=== PATIENT | male | born 1960 | race Caucasian/White ===

== ENCOUNTER 2017-10-13 08:58 | Outpatient (RCR) | payer OTHER ==
[~2017-10-13 08:58] MED LIST: AMLO-98 PO; ASPI-1471 PO; ASPI-715 PO; ATOR20TA65 PO; CALC625T69 PO; CHOL10005 PO; DOC100 PO; ERG400 PO; FAM20 PO; FINA5TAB67 PO; IBU600 PO; INUL2TAB8 PO; LEV500 PO; LEVO250T37 PO; LOR5/325 PO; MECL-81 PO; METF-410 PO; METF500T4 PO; MULT-865 PO; MULT1CAP59 PO; MULT1TAB54 PO; PER PO; PHENA200 PO; RAMI10CA62 PO
[2017-10-13 09:12] VITALS: BP 124/82
[2017-10-13 09:19] LABS: PLATELET COUNT, AUTOMATED 214 K/uL (150-450)
--- NOTE | 2017-10-13 12:11 | ONC Progress Note - NP.Halsey ---
Patient History Date of Service Oct 13, 2017 Reason For Visit/HPI Patient is seen in the clinic today with his for follow-up of his melanoma. Patient's continues to do complete skin check frequently. She has a few areas of concern that she is watching. Patient is recently followed with Dr. Pryor and at that time was noted to have no concerns. Patient has moved to [place] but continues to work in [place]. He will continue to follow with myself at this time. Patient denies any concerns today. He reports that he has had his flu vaccination and shingles vaccination. Last colonoscopy was at age 49 so he is not due for another 2-3 years. He continues to exercise and be active. Problem List (1) Melanoma in situ of back Oncology History DIAGNOSES 1. Stage I ([id number]) malignant melanoma of the skin of the back of right shoulder. 2. 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 3. Prostatitis. 4. Hematuria. The patient has followed with Dr. Sonny Cates and this has resolved. ONCOLOGY HISTORY 1. The patient was diagnosed at age 50 with a melanoma of the right shoulder. 2. Melanoma lesion of the midback, lesion with a small area of colonial pigmentation, removed; positive for malignant melanoma in situ, superficial, spreading type. Excised less than 1 mm of both peripheral tissue edges. Patient followed with Dr. Damian for further excision and negative margins. PRESENTATION 1. Change in color of a mole on the skin of the right shoulder noticed by the . 2. Abnormal pigmentation on the lesion in the midback, discovered on routine exam and also mentioned by the . DIAGNOSTIC EVALUATION 1. Skin biopsy of the right shoulder came back positive for malignant melanoma with a Breslow thickness of 1 mm Joselo level three. On second evaluation from the [facility], it was noted to be a superficial spreading malignant melanoma, Breslow thickness 0.82 mm stage 1A. 2. Malignant melanoma in situ, spreading type, on the midback on a shave biopsy on February 10, 2014. PROCEDURES 1. Wide surgical excision of the melanoma done on April 25, 2011. 2. February 10, 2014 malignant melanoma in situ extended to within less than 1 mm of both peripheral tissue edges of the right shoulder. PATHOLOGY No residual melanoma on either site STAGE 1. Stage I (apT1, NX, M0) malignant melanoma of the right skin at the back of the right shoulder 2. Stage 1, malignant melanoma in situ of the midback Medical History Past Medical History 1. Prostatitis 2. Hematuria, previously following with Dr. Sonny Cates, no longer a problem. This is resolved. 3. Marginally high blood pressure. The patient is currently on blood pressure medication under the care of Dr. Bautista Perez. PAST SURGICAL HISTORY 1. Cholecystectomy 2. Wide excision of melanoma in 2010 3. Wide excision of melanoma of the midback, February 10, 2014 Psychosocial History Social History Patient is with 2 adult children who are currently in college Occupational History Patient works for IT at the [employer] Alcohol History He denies abuse Recreational Drug History He denies use Smoking History: No Smoking Status: Never Smoker Medications and Allergies Active Scripts Metformin Hcl (METFORMIN HCL ER) 500 Mg Tab.er.24, 1 TAB PO QDAY, #90 TAB 4 Refills Prov:TAMIKO PEREZ MD 08/22/17 Reported Medications Cholecalciferol (Vitamin D3) (VITAMIN D3) Unknown Strength Tablet, PO, TAB 04/30/17 Multivitamin (DAILY MULTIPLE VITAMIN) 1 Each Tablet, 1 TAB PO DAILY 04/30/17 Finasteride (FINASTERIDE) 5 Mg Tablet, 5 MG PO QDAY 04/17/16 Atorvastatin Calcium (ATORVASTATIN CALCIUM) 20 Mg Tablet, 1 TAB PO QDAY, TAB TAKE ONE TABLET BY MOUTH ONCE A DAY AT BED TIME 10/19/14 Aspirin (ASPIR 81) 81 Mg Tablet.dr, 81 MG PO QDAY, TAB 10/19/14 Amlodipine Besylate (Amlodipine Besylate) 10 Mg Tablet, 10 MG PO QAM 02/02/13 Ramipril (Ramipril) 10 Mg Capsule, 10 MG PO QAM 02/02/13 Docusate Sodium (Colace 100 Mg) 100 Mg Cap, 100 MG PO DAILY, 0 Refills 04/26/11 Allergies: Coded Allergies: No Known Drug Allergies (Verified , 02/28/15) Review of System/Physical Exam Review of Systems All Systems Reviewed/Normal: Yes, Except as Noted Skin: Positive for Dry Skin (bilateral lower legs), Positive for Other ( several dark moles that patient is monitoring.) Physical Exam Vital Signs Temperature: 97.0 Pulse: 66 BP Systolic: 124 BP Diastolic: 82 Respiratory Rate: 16 O2 SAT: 99 O2 Delivery: Room Air Height (inches) 68.00 Weight lb: 196 Weight oz: 9.0 Weight Kg (Sudheer): [phone] Pain: 0 ECOG Score: 0 General: Stable, Well Developed, Well Nourished, Not In Acute Distress HEENT: No Trauma, No Conjunctivitis, No Icterus, No Mucositis, No Oral Thrush Neck: Supple, Thyromegaly Lungs: Not Clear to Auscultation Heart: Regular Rate, Regular Rhythm, No Gallops, No Murmurs Abdomen: Soft and Nontender, No Hepatosplenomegaly Extremities: No Cyanosis, No Clubbing, No Edema Lymphadenopathy: No Cervical, No Subclavicular, No Axillary Psychiatric: Mood appears normal, Affect appears normal Skin: No Skin Rashes, No Bruising, No Purpura Other The wide surgical excision on the right shoulder continues to have well- approximated margins. It is soft to palpation. The patient continues to put moisturizer on it. It appears to be filling in and to be less then at the deepest area. There is no evidence of bleeding. The divot remains stable where tissue has been removed. No evidence of recurrent disease in that area or surrounding that area. The patient has medial aspect of back excision area approximately 2 cm with no evidence of recurrence. Directly above that medial cervical area is a scar from previous biopsy which is well approximated and no suspicious areas. He does have development of 1 very small faint spot approximately 2:00 from the incision site that we will continue to monitor. The patient has multiple moles over his chest wall, back, arms, legs and neck. No suspicious areas other than one on the lower lateral forearm, one on the upper medial arm, 2 on the chest/shoulder on the right side, and 1 just above the incisional site in the middle of his back as mentioned above. A mole on his left medial bowie remains stable and not concerning today. Diagnostic Studies Diagnostic Studies Laboratory Labs reviewed with patient today. He reports that he did not fast prior to his labs. Laboratory Tests 10/13/17 08:05 Laboratory Tests 10/13/17 08:05: White Blood Count 5.3, Red Blood Count 5.20, Hemoglobin 15.6, Hematocrit 45.3, Mean Corpuscular Volume 87.0, Mean Corpuscular Hemoglobin 30.0, Mean Corpuscular Hemoglobin Concent 34.5, Red Cell Distribution Width 12.7, Platelet Count 214, Mean Platelet Volume 6.6, Neutrophils (%) (Auto) 52.2, Lymphocytes (% ) (Auto) 37.0, Monocytes (%) (Auto) 9.2, Eosinophils (%) (Auto) 1.4, Basophils ( %) (Auto) 0.2, Nucleated RBC Relative Count (auto) 0.0, Neutrophils # (Auto) 2.8 , Lymphocytes # (Auto) 2.0, Monocytes # (Auto) 0.5, Eosinophils # (Auto) 0.1, Basophils # (Auto) 0.0, Nucleated RBC Absolute Count (auto) 0.00, Sodium Level 136, Potassium Level 4.8, Chloride Level 100, Carbon Dioxide Level 25, Blood Urea Nitrogen 18, Creatinine 1.10, Glomerular Filtration Rate Calc > 60.0, Random Glucose 213, Calcium Level 9.5, Total Bilirubin 0.8, Aspartate Amino Transf (AST/SGOT) 26, Alanine Aminotransferase (ALT/SGPT) 47, Alkaline Phosphatase 81, Total Protein 7.5, Albumin 4.4 Assessment and Plan Assessment & Plan 1. Stage I (apT1, NX, M0) malignant melanoma of the skin of the back of the right shoulder status post an excision biopsy done on April 03, 2011. The Breslow thickness of 1 mm Joselo level 3. A wide surgical excision done on March 26, 2011 did not show any residual melanoma. The sentinel lymph node could not be done at this time and was reevaluated by Dr. Pryor and indicated as not necessary. The patient was not a candidate for adjuvant therapy with interferon. The patient will continue to follow every six months with a CBC, CMP and yearly chest x-ray. 2. Stage 1 (apT1, NX, MO), malignant melanoma in situ of the mid upper back, which extended less than one mm of both peripheral tissue edges. Wide excision completed by Dr. Damian with negative margins. We will continue to monitor that as well. 3. History of prostatitis and hematuria. Patient continues to follow with Dr. Cates. He is currently on finasteride and follows yearly with a PSA. 4. Hypertension. The patient continues to follow with Dr. Bautista Perez and will establish care in [place] in the near future with Dr. Joshua duncan. 5. The patient did follow with the melanoma clinic at the [facility] on July 23, 2014. In their review, he was a T1a melanoma in situ of the back. Their recommendation is continued surveillance per oncology clinic and skin exams with Dr. Pryor every six months. 6. Patient is current with a bone density study in 2017, colonoscopy at age 49, flu vaccination, shingles vaccination. PLAN 1. Patient will follow with myself in six months with a CBC, CMP, and Chest X- ray prior. 2. Patient will follow with Dr. Pryor every six months, alternating visits with myself. 3. He will establish care with a primary provider in [place]. Possibly Dr. Lewis 4. The patient will call if he has any questions or concerns. I personally spent a total of 30 minutes. Of that 30 minutes was counseling/ coordination of patient's care. See my note above for details. Copies to: HAIM PRYOR MD, NANCY J CURB ATTENDANT-BC, ONC Oct 13, 2017 12:11
== END 2017-10-24 09:07 | disposition home or self-care (01) ==
LOC: SPU 08:58
PROVIDERS: ATTEND Nurse Practitioner Family
DX: Z85.820 Personal history of malignant melanoma of skin (principal); I10 Essential (primary) hypertension; Z79.82 Long term (current) use of aspirin; Z79.899 Other long term (current) drug therapy; N41.9 Inflammatory disease of prostate, unspecified; R31.9 Hematuria, unspecified; D22.61 Melanocytic nevi of right upper limb, including shoulder; L81.8 Other specified disorders of pigmentation; D22.62 Melanocytic nevi of left upper limb, including shoulder; D22.72 Melanocytic nevi of left lower limb, including hip; D22.71 Melanocytic nevi of right lower limb, including hip; D22.4 Melanocytic nevi of scalp and neck
CPT/HCPCS: 36415; 82040; 82247; 82310; 82374; 82435; 82565; 82947; 84075; 84132; 84155; 84295; 84450; 84460; 84520; 85025; 99212

== ENCOUNTER 2018-08-13 01:56 | Day surgery (SDC) | payer OTHER ==
--- NOTE | 2018-08-12 17:52 | HISTORY AND PHYSICAL ---
DATE OF ADMISSION: August 13, 2018 CHIEF COMPLAINT Right inguinal hernia. HISTORY OF PRESENT ILLNESS Patient is a 58-year-old white male who has had a several-month history of right groin pain which was diagnosed as an inguinal hernia when he was seen for his annual followup in September 2017. He has been working this past summer, and the hernia has become more problematic, and he is having more discomfort and, therefore, desires repair. He denies chronic constipation, straining to void, or cough. PAST MEDICAL HISTORY 1. Hypertension. 2. Hypercholesterolemia. 3. Hemosiderosis. 4. Low back pain secondary to bulging disk. 5. History of melanoma. PAST SURGICAL HISTORY 1. Melanoma excision of right shoulder 2010. 2. Appendectomy. 3. Cholecystectomy. 4. Bilateral vasectomy. 5. Anesthetic cystoscopy 2012 and 2010. CURRENT MEDICATIONS 1. Amlodipine. 2. Aspirin. 3. Lipitor. 4. Calcium. 5. Vitamin D. 6. Colace. 7. Finasteride. 8. Metformin. 9. Ramipril. ALLERGIES No known drug allergies. SOCIAL HISTORY Patient lives in [place], [place]. He denies smoking or illicit drug use. FAMILY HISTORY Noncontributory. REVIEW OF SYSTEMS Patient denies chest pain, productive cough, fever, chills, nausea, vomiting, current liver disease, although he has a history of elevated LFTs in the past, bleeding disorder, or chronic headaches. PHYSICAL EXAMINATION GENERAL: Patient is a well-developed, well-nourished, white male in no acute distress. HEENT: Normocephalic, atraumatic. ABDOMINAL: Soft, nontender. No masses are palpated. CHEST: Clear to auscultation bilaterally. BACK: Normal-appearing spine without CVAT. GENITOURINARY: Normal-appearing penis. Both his testes are descended bilaterally. He has a right inguinal hernia which is reducible. EXTREMITIES: Without clubbing, cyanosis, or edema. NEUROLOGIC: Nonfocal. IMPRESSION Right inguinal hernia. PLAN We will perform right inguinal hernia repair. Specific risks and benefits were explained including bleeding, infection, recurrence, hydrocele formation, chronic numbness and/or discomfort at surgery site, and damage to adjacent structures including nerve, bowel, vessels, and testes. [facility]
[~2018-08-13] VITALS: Ht 172.7 cm; Wt 80.7 kg
[~2018-08-13 01:56] MED LIST changes: +AMLO-113 PO; +CALC625T57 PO; -METF-410 PO; +METF-450 PO; +RAMI10CA9 PO
[2018-08-13 06:33] VITALS: BP 127/83
[2018-08-13] MEDS ORDERED: ceFAZolin(*) 1 GM VIAL 1 GM, GENTAMICIN(*) 80 MG/2 ML VIAL 60 MG in NS 0.9% IRRIGATION ... IR ONE ×2 (06:45)
[2018-08-13] MEDS ORDERED: NORMOSOL R SOLN(*) 1000 ML BAG 1,000 ML IV PRN (06:45)
[2018-08-13] MEDS ORDERED: LIDOCAINE/SOD BICARB 8.4% SYR ID ONE (06:45)
[2018-08-13] MEDS ORDERED: ceFAZolin(*) 1 GM VIAL 1 GM in NS(*) 0.9% 100 ML ADDVANT BAG 100 ML IVPB ONE ×2 (06:45)
[2018-08-13] MEDS ORDERED: MIDAZOLAM 2 MG/2 ML VIAL IVP PRN (06:45)
[2018-08-13] MEDS ORDERED: FAMOTIDINE 20 MG TAB PO ONE (06:45)
--- NOTE | 2018-08-13 06:50 | EKG ---
FACILITY: [facility] PATIENT NAME: DALLAS HERNANDEZ : [id number] MR: [id number] V: [id number] EXAM DATE: ORDERING PHYSICIAN: KAROL BALDERAS TECHNOLOGIST: Test Reason : Pre-op Blood Pressure : / mmHG Vent. Rate : 062 BPM Atrial Rate : 062 BPM P-R Int : 154 ms QRS Dur : 084 ms QT Int : 404 ms P-R-T Axes : 020 001 020 degrees QTc Int : 410 ms Sinus rhythm No acute appearing findings When compared with ECG of 28-FEB-2015 06:09, No significant change was found Confirmed by JOSEP PATINO ([id number]) on 08/13/2018 9:06:19 AM Referred By: Confirmed By:JOSEP PATINO
[2018-08-13] MEDS ORDERED: ROPIVACAINE 0.2% 20 ML VIAL ONE (07:00)
[2018-08-13] MEDS ORDERED: fentaNYL CITR 100 MCG/2 ML AMP ONE ×2 (07:59→09:52)
[2018-08-13] MEDS ORDERED: DEXAMETHASONE SOD 4 MG/ML VIAL ONE (07:59)
[2018-08-13] MEDS ORDERED: KETOROLAC 30 MG/ML VIAL ONE (09:01)
[2018-08-13] MEDS ORDERED: ONDANSETRON 4 MG/2 ML VIAL ONE (09:01)
[2018-08-13] MEDS ORDERED: PROPOFOL EMUL(*) 10MG/ML 20 ML 20 ML ONE (09:01)
[2018-08-13] MEDS ORDERED: IBUP600T22 PO (09:45)
[2018-08-13] MEDS ORDERED: HYDR-385 PO (09:45)
[2018-08-13] MEDS ORDERED: DOCU-416 PO (09:46)
[2018-08-13 10:25] VITALS: BP 134/97
[2018-08-13] MEDS ORDERED: APAP/HYDROCODONE 325/5 TAB PO PRN (10:35)
[2018-08-13 10:58] VITALS: BP 123/91
--- NOTE | 2018-08-13 11:43 | OPERATIVE REPORT 1 ---
EVENT DATE: August 13, 2018 SURGEON: Sonny Cates MD ANESTHESIOLOGIST: Buddy Mendoza M.D. ANESTHESIA: General. FIXED INCOME ANALYST: Buddy Mcneill MD PREOPERATIVE DIAGNOSIS Right inguinal hernia. POSTOPERATIVE DIAGNOSIS Right direct inguinal hernia. PROCEDURE PERFORMED Right direct inguinal hernia repair with mesh using Rosa technique. ESTIMATED BLOOD LOSS 10 cc. IV FLUIDS Crystalloids. DRAINS None. COMPLICATIONS None. CONDITION The patient was taken to the recovery room awake and in stable condition. STATEMENT OF MEDICAL NECESSITY The patient is a 58-year-old white male who was diagnosed with an inguinal hernia several months ago who now desires repair. His main complaint is pain and discomfort with swelling after physical activity. He denies significant effect to voiding symptoms, constipation or chronic cough. DESCRIPTION OF PROCEDURE The patient was brought to the operating room after general anesthetic was obtained. He was placed supine on the operating room table and prepped and draped in the usual sterile manner. A right lower quadrant skin incision was made along the lines of Langerhans from just superior to the external ring to superolaterally for approximately 5 cm. This was taken through the subcutaneous tissue with electrocautery until the aponeurosis of the external oblique was encountered. This was incised parallel with its fibers to expose the inguinal contents. The ilioinguinal nerve was identified and retracted inferolaterally. The cord was isolated at the pubic tubercle with a [place] drain. The cremasteric fibers were removed from around the cord down to the internal ring. The ring was inspected. He had no indirect component. Direct component was noted just off the medial aspect of the floor measuring approximately 1 x 1.5 cm in diameter. At this point, mesh was prepared to the appropriate size. It was then secured in place using 0 PDS starting at the pubic tubercle and proceeding out inferolaterally along the inguinal ligament and then medial superiorly along the transversalis fascia. It was incised at its lateral aspect to wrap around the cord. This was secured in place with PDS as well. Following repair, the wound was irrigated with copious amounts of antibiotic solution. 0.25% bupivacaine was given along the cord, transversalis fascia and skin edges. At this point, the cord was placed back in its normal anatomical position along with the ilioinguinal nerve. The aponeurosis of the external oblique was closed with running 2-0 Vicryl stitch. The subcutaneous tissue was reapproximated with interrupted 3-0 Chromic and the skin was closed with 4-0 subcuticular Vicryl stitch. Skin adhesive was placed along the skin edge. A sterile dressing with fluff dressing was placed at the conclusion of the procedure. The patient was awakened in the operating room and taken to the recovery area in stable condition. PLAN The plan will be to have the patient be discharged home today on Colace, [place] and Motrin. He is to continue to have ice and scrotal support for the next 36 hours. We will plan to see in Urology Clinic in four to six weeks. JEROD
[2018-08-13 11:52] VITALS: BP 124/82
[2018-08-13 11:55] VITALS: BP_SYST 114; BP_SYST 116; BP_DIAS 81; BP_DIAS 82
== END 2018-08-13 10:25 | disposition home or self-care (01) ==
LOC: OR 01:56
PROVIDERS: ATTEND Urology
DX: K40.90 Unilateral inguinal hernia, without obstruction or gangrene, not specified as recurrent (principal); I10 Essential (primary) hypertension; E78.00 Pure hypercholesterolemia, unspecified; E11.9 Type 2 diabetes mellitus without complications; E83.19 Other disorders of iron metabolism
CPT/HCPCS: 36416; 49505; 81001; 82948; 87088; 93005; C1781; J0690; J1100; J1885; J2405; J2704; J2795; J3010; J7050